=== PATIENT | female | born 1950 | race Caucasian/White ===

== ENCOUNTER 2021-08-31 11:00 | Outpatient (CLI) | payer MEDICARE, SELFPAY ==
[2021-08-31 15:51] LABS: Ferritin* 40.4 ng/mL (11.1-264.0)
== END 2021-08-31 11:01 | disposition home or self-care (01) ==
LOC: NFLDREF 11:02
PROVIDERS: Visit Provider Internal Medicine
DX: R53.83 Other fatigue (principal); D50.9 Iron deficiency anemia, unspecified; Z86.39 Personal history of other endocrine, nutritional and metabolic disease
CPT/HCPCS: 82728

== ENCOUNTER 2024-08-06 14:45 | Outpatient (CLI) | payer MEDICARE, SELFPAY | END 2024-08-06 14:46 | disposition home or self-care (01) | PROVIDERS: Visit Provider Family Medicine | DX: I10 Essential (primary) hypertension (principal); E78.5 Hyperlipidemia, unspecified; R63.4 Abnormal weight loss; D50.9 Iron deficiency anemia, unspecified; D75.839 Thrombocytosis, unspecified; M81.0 Age-related osteoporosis without current pathological fracture; N18.9 Chronic kidney disease, unspecified | CPT/HCPCS: 80053; 80061; 82306; 82607; 82728 ==

== ENCOUNTER 2024-09-17 15:40 | Outpatient (CLI) | payer MEDICARE, SELFPAY | END 2024-09-17 15:41 | disposition home or self-care (01) | LOC: NFLDREF 15:41 | PROVIDERS: PCP Family Medicine; Visit Provider Family Medicine | DX: E16.2 Hypoglycemia, unspecified (principal) | CPT/HCPCS: 83525 ==

== ENCOUNTER 2024-10-21 10:34 | Outpatient (CLI) | payer MEDICARE, SELFPAY | END 2024-10-21 10:35 | disposition home or self-care (01) | LOC: NFLDREF 10-24 10:36 | PROVIDERS: PCP Family Medicine; Referring Provider Family Medicine; Visit Provider Family Medicine | DX: E78.5 Hyperlipidemia, unspecified (principal); M81.0 Age-related osteoporosis without current pathological fracture | CPT/HCPCS: 80061; 82306 ==